=== PATIENT | male | born 1955 | race Caucasian/White ===

== ENCOUNTER 2021-10-13 07:37 | Outpatient (CLI) | payer OTHER, SELFPAY ==
--- NOTE | 2021-10-13 07:57 | EKG12_ITS ---
Test Reason : PREOP Blood Pressure : / mmHG Vent. Rate : 073 BPM Atrial Rate : 073 BPM P-R Int : 164 ms QRS Dur : 082 ms QT Int : 364 ms P-R-T Axes : -08 018 032 degrees QTc Int : 401 ms Normal sinus rhythm Normal ECG Confirmed by ANUSHA SANTOS, DECLAN ([id number]), avid editor ANTELMO CHAVEZ ([id number]) on 10/14/2021 11:26:48 AM Referred By: RUPINDER Confirmed By:DECLAN TAVARES MD
[2021-10-13 08:20] LABS: Hematocrit 44.1 % (40-54); Hemoglobin 14.6 g/dL (13.0-16.5); Mean Corp Hgb Conc 33.1 g/dL (32-36); Mean Corpuscular Hgb 31.3 pg (27.0-32.0); Mean Corpuscular Volume 94.6 fL (80-94); Mean Platelet Vol. 10.5 fl (6.2-12.0); Platelet Count 206 K/mm3 (150-450); RBC Distribution Width CV 13.1 % (11.6-14.6); RBC Distribution Width SD 45.3 fl (35.1-43.9); Red Blood Count 4.66 M/mm3 (4.6-6.2); White Blood Count 7.6 K/mm3 (4.4-11.0)
[2021-10-13 08:56] LABS: Anion Gap 3 (5-15); BUN 26 mg/dL (7-18); BUN/Creat Ratio 23.6 RATIO (10-20); Calcium,Total 8.9 mg/dL (8.5-10.1); Chloride 111 mmol/L (98-107); EST Glomerular Filtration Rate 71 mL/min (>60); Est Glom Filt Rate - Afr Amer 86 mL/min (>60); Glucose 115 mg/dL (74-106); Potassium 4.4 mmol/L (3.5-5.1); Sodium Level 143 mmol/L (136-145)
== END 2021-10-13 23:59 | disposition home or self-care (01) ==
PROVIDERS: PCP Dentist; Visit Provider Physician Assistant
DX: Z01.818 Encounter for other preprocedural examination (principal); Z01.810 Encounter for preprocedural cardiovascular examination
CPT/HCPCS: 36415; 80048; 85027; 93005

== ENCOUNTER 2022-02-21 04:43 | Inpatient (IN) | payer OTHER, MEDICARE, SELFPAY ==
[2022-02-21] VITALS (19 sets, daily range): BP systolic 139–168; BP diastolic 82–121; PULSE 62–85; RESP 16–18; TEMP 36.3–37; O2SAT 95–100; BMI 39.0; BMI 38.7
--- NOTE | 2022-02-21 04:56 | RAD_ITS ---
STUDY: X-RAY CHEST REASON FOR EXAM: Male, 66 years old. chest pain TECHNIQUE: Single AP portable view of the chest. COMPARISON: None. FINDINGS: The lungs are clear and expanded. There is no demonstrated pleural abnormality. Normal size heart. Normal mediastinum and bryn. Normal visualized pulmonary arteries. Normal visualized aortic arch and descending thoracic aorta. Normal visualized thoracic spine. Normal visualized ribs, clavicles, and shoulders. There is no demonstrated abnormality of the visualized soft tissue structures of the upper abdomen. RAD/Chest 1 View (Portable) IMPRESSION: Normal x-ray examination of the chest. Electronically Signed: Khanh Bonner DO at 5:22 EDT ,
--- NOTE | 2022-02-21 04:56 | EKG12_ITS ---
Test Reason : CP Blood Pressure : / mmHG Vent. Rate : 076 BPM Atrial Rate : 076 BPM P-R Int : 166 ms QRS Dur : 084 ms QT Int : 392 ms P-R-T Axes : 045 014 041 degrees QTc Int : 441 ms Normal sinus rhythm Normal ECG Confirmed by ANUSHA SANTOS, DECLAN ([id number]), photograph editor JACKY RODRIGUEZ ([id number]) on 02/23/2022 9:57:37 AM Referred By: PL Confirmed By:DECLAN TAVARES MD
--- NOTE | 2022-02-21 04:57 | ED.VIS.CHEST ---
HPI History of Present Illness Chief Complaint: Chest Pain Informant: patient Narrative Narrative: Patient presents with anterior chest pain. He states it is a burning or weight pressing down on his chest. Is across his whole front chest. It just radiates up toward the shoulders. Its not in the back neck or jaw. He does not really feel nauseated lightheaded diaphoretic or short of breath with it. He has been having these episodes for about 3 or 4 days. It started off that he would get them while he was on a step machine. He is use this machine for a long time but just started getting the symptoms. If he would stop, the symptoms would go away in about 15 to maybe 20 minutes. He had an episode last night about 11 PM that went away. That 1 occurred at rest. He tried some milk and it seemed to help. He then started another episode about 45 minutes ago. He has tried milk and Tums and that made no change at all. He does not have a sour or acid taste in his mouth. No history of GERD. Patient denies any medical problems. But its been a very long time since he has been in to see a physician. He does have a physical exam coming up. He has no history of blood pressure but he also has not had his blood pressure checked in quite some time. He has had no recent travel surgery or immobilization personal or family history of DVT or PE. Last surgery was a knee scope over 6 months ago. He quit smoking about 10 or 12 years ago. No known family history of early heart disease. [facility] Medical History COPD (chronic obstructive pulmonary disease) Home Medications NK 02/21/22 [History Last Taken Unknown] Allergy/AdvReac Type Severity Reaction Status Date / Time No Known Allergies Allergy Verified 02/21/22 04:47 Social History Smoking Status: Former smoker ROS ROS ED Constitutional Constitutional ED: Denies chills or fever(s) Eyes Eyes: Denies blurry vision ENT ENT ED: Denies rhinorrhea or sore throat Cardiovascular Cardiovascular: Reports as per HPI Respiratory/Chest Respiratory/Chest: Denies dyspnea Gastrointestinal Gastrointestinal: Denies nausea or vomiting Genitourinary Genitourinary ED: Denies hematuria Musculoskeletal Musculoskeletal: Denies back pain or neck pain Integumentary Denies rash Neurologic Neurologic: Denies headache(s), paresthesias or weakness Endocrine Endocrinology: Denies polydipsia or polyuria Hematologic/Lymphatic Hematologic/Lymphatic: Denies easy bleeding or easy bruising Allergic/Immunologic Allergic/Immunologic ED: Denies urticaria EXAM Physical Exam Const Vital Signs: 02/21/22 04:44 02/21/22 04:49 02/21/22 05:04 Temperature 98.1 F Temperature Source Oral Pulse Rate 77 Respiratory Rate 18 Respiratory Effort Normal Non-Labored Blood Pressure 168/121 H Blood Pressure Mean 136 Pulse Ox 100 Oxygen Delivery Method Room Air Room Air 02/21/22 05:28 Temperature Temperature Source Pulse Rate 68 Respiratory Rate Respiratory Effort Blood Pressure 157/95 H Blood Pressure Mean Pulse Ox Oxygen Delivery Method Positive well nourished and well developed Constitutional Narrative: Patient sitting back in bed. He is relaxed. He does state that he is uncomfortable though. He is not diaphoretic or pale. General Appearance ED: well developed and NAD; Negative for pallor HEENT Reports moist mucous membranes Eyes General Eye ED: Negative for scleral icterus Neck no JVD Chest Wall inspection of chest normal and palpation of chest normal Chest Narrative: No chest wall tenderness Resp normal respiratory effort and clear to auscultation bilaterally Resp Narrative: No pain with a deep breath Auscultation: Negative for rales, rhonchi or wheezes Cardio regular rate, regular rhythm and no murmurs GI normal to inspection, nondistended, normoactive bowel sounds, soft to palpation and non-tender GI Narrative: No epigastric or right upper quadrant tenderness. Back/Spine no CVA tenderness Extremity normal to inspection Extremity Narrative: Lower extremities are thin. No edema cords or asymmetry. Neuro oriented x3 Sensorium / Orientation: awake and alert Psych mental status grossly normal Skin no rashes or lesions noted Skin Narrative: No diaphoresis General Skin Exam: Negative for jaundice or pallor Heart Score History: Moderately Suspicious ECG: Nonspecific Repolarization Age: >/= 65 years Risk Factors: 1 or 2 Risk Factors Troponin: >1 - <3 Normal Limit Score: 6 MDM MDM MDM Narrative Medical decision making narrative: Patient did not want the nitro. He tells me his pain is gone now. His blood pressure is also down a little bit. Saturations are normal. He looks more comfortable now. Labs show normal CBC. Electrolytes look good other than minimal elevation of glucose. However, his troponin is high at 173. Chest x-ray shows no acute process. This patient's story is concerning with exertional chest pain that now occurred at rest. This was a worse episode. He has risk factors of obesity, likely untreated high blood pressure, and prior smoking history although that is been over 10 years. I have hospitalist on page regarding admission. Lab Data Labs: Laboratory Results - last 24 hr 02/21/22 02/21/22 04:57 04:57 WBC 9.6 RBC 4.49 L Hgb 14.3 Hct 42.8 MCV 95.3 H MCH 31.8 MCHC 33.4 RDW Std Deviation 45.5 H RDW Coeff of Navjot 13.0 Plt Count 201 MPV 10.3 Immature Gran % (Auto) 0.300 Neut % (Auto) 42.8 L Lymph % (Auto) 44.0 H Pendleton % (Auto) 10.0 Eos % (Auto) 2.5 Baso % (Auto) 0.4 Absolute Neuts (auto) 4.1 Absolute Lymphs (auto) 4.21 Nucleated RBC % 0 Sodium 141 Potassium 3.5 Chloride 105 Carbon Dioxide 32.0 Anion Gap 4 L BUN 14 Creatinine 1.05 Estim Creat Clear Calc 66.05 Est GFR (MDRD) Af Amer 90 Est GFR (MDRD) Non-Af 75 BUN/Creatinine Ratio 13.3 Glucose 117 H Calcium 8.7 Troponin I High Sens 173 H* Radiography Diagnostic Testing: Clinical Impression(s) from Imaging Studies Chest X-Ray 02/21/22 04:56 IMPRESSION: Normal x-ray examination of the chest. Electronically Signed: Khanh Bonner DO at 5:22 EDT , EKG Initial EKG: Comments: EKG done for chest pain read by me shows a normal sinus rhythm with overall rate of 76. No ectopy. There is very subtle well less than half a millimeter of ST depression in leads V4 V5 may be a little in V6. MO interval, QRS duration and QTc normal. EKG looks similar to prior of 13 October 2021 but there is some very subtle difference in the ST segment/J-point in the lateral chest leads Discharge Plan Dx/Rx/DC Orders Clinical Impression: Non-ST elevation CT (NSTEMI), Elevated blood pressure reading Disposition Disposition: Acute Care Hospital [facility]
[2022-02-21] MEDS: Aspirin 81 MG TAB.CHEW 324 MG PO (05:01)
[2022-02-21 05:03] LABS: Absolute Lymphocyte Count 4.21 X10^3/uL (0.83-4.51); Absolute Neutrophil Count 4.1 X10^3/uL (2.0-7.7); Basophil# 0.04 X10^3/uL; Basophil% 0.4 % (0-1); Eosinophil# 0.24 X10^3/uL; Eosinophils% 2.5 % (0-5); Hematocrit 42.8 % (40-54); Hemoglobin 14.3 g/dL (13.0-16.5); Lymphocyte # 4.21 X10^3/ul (0.83-4.51); Mean Corp Hgb Conc 33.4 g/dL (32-36); Mean Corpuscular Hgb 31.8 pg (27.0-32.0); Mean Corpuscular Volume 95.3 fL (80-94); Mean Platelet Vol. 10.3 fl (6.2-12.0); Monocyte# 0.96 X10^3/uL; NRBC Flagged by Analyzer 0 % (0-5); Neutrophil # 4.09 X10^3/uL (2.7-7.7); Neutrophil % 42.8 % (47-70); Platelet Count 201 K/mm3 (150-450); RBC Distribution Width SD 45.5 fl (35.1-43.9); Red Blood Count 4.49 M/mm3 (4.6-6.2); White Blood Count 9.6 K/mm3 (4.4-11.0)
--- NOTE | 2022-02-21 05:21 | NURSING ---
pt refused nitro.
[2022-02-21 05:24] LABS: Anion Gap 4 (5-15); BUN 14 mg/dL (7-18); BUN/Creat Ratio 13.3 RATIO (10-20); Calcium,Total 8.7 mg/dL (8.5-10.1); Chloride 105 mmol/L (98-107); Creatinine, Serum 1.05 mg/dL (0.70-1.30); EST Glomerular Filtration Rate 75 mL/min (>60); Est Glom Filt Rate - Afr Amer 90 mL/min (>60); Estimated Creatinine Clearance 66.05 ml/min; Glucose 117 mg/dL (74-106); Potassium 3.5 mmol/L (3.5-5.1); Sodium Level 141 mmol/L (136-145); Troponin-I HS (w/2H Reflex) 173 pg/mL (3.0-78.0)
[2022-02-21] MEDS: Nitroglycerin SL (ED/IMG/CATH) 0.4 MG TABLET SL ×2 (05:28→05:49)
--- NOTE | 2022-02-21 06:00 | EKG12_ITS ---
Test Reason : CP ADMISSION Blood Pressure : / mmHG Vent. Rate : 072 BPM Atrial Rate : 072 BPM P-R Int : 168 ms QRS Dur : 082 ms QT Int : 386 ms P-R-T Axes : 040 007 036 degrees QTc Int : 422 ms Normal sinus rhythm Normal ECG Confirmed by ANUSHA SANTOS, DECLAN ([id number]), editorial assistant JACKY RODRIGUEZ ([id number]) on 02/23/2022 9:57:58 AM Referred By: STEPHANIE Confirmed By:DECLAN TAVARES MD
--- NOTE | 2022-02-21 06:01 | HP.PCM.HOS_ITS ---
HPI - General General Date of Admission: 02/21/22 Date of Service: 02/21/22 Chief Complaint: chest pain HPI Narrative BOSSMAN MCLAUGHLIN, is a 66 M with a significant history of COPD that improved with him quitting smoking about 10 years ago who presents to the emergency department with substernal chest pain that started about 5 days ago. His chest pain is episodic. He described chest pain as burning and aching. It has been worsening. At night before presentation his chest pain occurred. He attributed his chest pain to indigestion so he took some milk and Tums and his chest pain was resolved. The next morning (on the day of presentation) his chest pain woke him up from sleep. He took some milk and Tums but at that time his chest pain did not resolved and it persisted. His chest pain worsens with exercising. Of note patient exercise avidly. He uses a stepper machine and weights. On presentation his chest pain was a 7-8 on a scale of 1-10. With nitroglycerin his chest pain improved to 5-6. [facility] Medical History COPD (chronic obstructive pulmonary disease) Home Medications NK 02/21/22 [History Last Taken Unknown] Allergy/AdvReac Type Severity Reaction Status Date / Time No Known Allergies Allergy Verified 02/21/22 04:47 Family History (Updated 02/21/22 @ 06:[address] Lowell Ring MD) Other Diabetes Surgical History (Updated 02/21/22 @ 06:[address] Lowell Ring MD) H/O arthroscopy of knee Social History Smoking Status: Former smoker ROS ROS Narrative Pertinent positives and pertinent negatives as noted in HPI. All other systems were reviewed and are negative. Vital Signs Vital Signs Vital Signs: 02/21/22 04:44 02/21/22 04:49 02/21/22 05:04 Temperature 98.1 F Temperature Source Oral Pulse Rate 77 Respiratory Rate 18 Respiratory Effort Normal Non-Labored Blood Pressure 168/121 H Blood Pressure Mean 136 Pulse Ox 100 Oxygen Delivery Method Room Air Room Air 02/21/22 05:28 02/21/22 05:49 Temperature Temperature Source Pulse Rate 68 72 Respiratory Rate Respiratory Effort Blood Pressure 157/95 H 142/86 H Blood Pressure Mean Pulse Ox Oxygen Delivery Method Weight Weight: 116.6 kg Body Mass Index (BMI) 39.0 Physical Exam Narrative Physical exam: General: Well-nourished, well-developed. Head: Normocephalic, atraumatic, no tenderness Eyes: Vision is grossly intact. EOMI ENT, no trauma, moist mucous membranes, no rhinorrhea Neck: Nontender, full range of motion, no spinal tenderness, deformities, step- off CVS: Regular rate and rhythm. S1-S2 present. No murmur, gallop or rub. Respiratory : clear to auscultation bilaterally, chest wall nontender, no wheezing Abdomen: Soft, nontender, nondistended, normal bowel sounds, no masses : Deferred Back: Nontender, no CVA tenderness, no midline spinal tenderness, deformities, step-offs Extremities: Nontender full range of motion, no trauma Skin: Normal color, no trauma, abrasions Neuro: Alert, oriented, cranial nerves II through XII grossly intact. Psychiatry: Normal mood. Normal affect. Not depressed. Not anxious. Results Lab / Micro Data Result Diagrams: 02/21/22 04:57 02/21/22 04:57 Labs: Laboratory Results - last 24 hr 02/21/22 04:57: WBC 9.6, RBC 4.49 L, Hgb 14.3, Hct 42.8, MCV 95.3 H, MCH 31.8, MCHC 33.4, RDW Std Deviation 45.5 H, RDW Coeff of Navjot 13.0, Plt Count 201, MPV 10.3, Immature Gran % (Auto) 0.300, Neut % (Auto) 42.8 L, Lymph % (Auto) 44.0 H, Saline % (Auto) 10.0, Eos % (Auto) 2.5, Baso % (Auto) 0.4, Absolute Neuts (auto) 4.1, Absolute Lymphs (auto) 4.21, Nucleated RBC % 0 02/21/22 04:57: Sodium 141, Potassium 3.5, Chloride 105, Carbon Dioxide 32.0, Anion Gap 4 L, BUN 14, Creatinine 1.05, Estim Creat Clear Calc 66.05, Est GFR (MDRD) Af Amer 90, Est GFR (MDRD) Non-Af 75, BUN/Creatinine Ratio 13.3, Glucose 117 H, Calcium 8.7, Troponin I High Sens 173 H* Radiology Impression Chest X-Ray 02/21/22 04:56 IMPRESSION: Normal x-ray examination of the chest. Electronically Signed: Khanh DO Kailey at 5:22 EDT Reading Location ID and State: [address] [place] [address] Tel , Service support , Assessment & Plan Assessment/Plan (1) Non-ST elevation [place] (NSTEMI): (2) Elevated blood pressure reading: PLAN: Plan NSTEMI Place on a monitored bed at PCU Actual CXR image was independently visualized. No acute cardiopulmonary process was noted. Actual EKG tracing was independently visualized. EKG tracing showed subtle ST depression in leads V4 and V5 which disappeared on repeat. ASA 324 given at the ED. ASA 81 mg p.o. daily ordered Morphine as needed for pain ordered We will check lipid panel. Initial troponin elevated Serial cardiac enzymes ordered. Stat EKG as needed for chest pain Elevated blood pressure reading without evidence of hypertension prn Hydralazine ordered. DVT Prophylaxis SCD ordered Charges/Coding Visit Charges OBSV E&M: 30327 Initial observation care L2
--- NOTE | 2022-02-21 06:37 | ECHOCS_ITS ---
Reason For Study: Chest pain Procedure This was a 2D Doppler, Color Flow transthoracic echocardiogram. The study was technically difficult. Exam performed portable in patient room. Left Ventricle Normal LV size. Left ventricular systolic function is lower limits of normal. The estimated ejection fraction is 50 %. Mild segmental systolic dysfunction (see wall motion). Stage 1 diastolic dysfunction. Posterior-Basal: Hypokinetic. The rest of the wall segments are normal. Right Ventricle Normal RV size. Normal systolic function. Atria Normal left atrium. Normal right atrium. Mitral Valve Normal mitral valve. Tricuspid Valve Normal tricuspid valve. Aortic Valve Trisinus/trileaflet aortic valve. Pulmonic Valve Normal pulmonic valve. Great Vessels Normal aortic root. The pulmonary artery is normal size. Normal inferior vena cava. Pericardium/Pleural No pericardial effusion. Medication Diluted definity 4.5ml given slow IV push to enhance endocardial definition. MMode/2D Measurements & Calculations LVIDd: 4.8 cm IVSd: 1.1 cm Ao root diam: 3.5 cm LVIDs: 3.6 cm LVPWd: 1.0 cm RVDd: 3.9 cm FS: 24.6 % LAV(MOD-bp): 49.1 ml LVAd ap4: 34.3 cm2 LVAd ap2: 35.0 cm2 LAV(MOD-bp) Indexed: 21.7 ml/m2 LVLd ap4: 8.4 cm LVLd ap2: 8.5 cm LAV(MOD-sp2): 56.1 ml EDV(MOD-sp4): 112.4 ml EDV(MOD-sp2): 119.2 ml LAV(MOD-sp4): 37.6 ml EDV(sp4-el): 118.5 ml EDV(sp2-el): 122.0 ml LVAs ap4: 21.0 cm2 LVAs ap2: 21.4 cm2 LVLs ap4: 6.6 cm LVLs ap2: 7.2 cm ESV(MOD-sp4): 55.3 ml ESV(MOD-sp2): 55.7 ml ESV(sp4-el): 56.7 ml ESV(sp2-el): 53.9 ml EF(MOD-sp4): 50.8 % EF(MOD-sp2): 53.2 % EF(sp4-el): 52.2 % SV(MOD-sp4): 57.1 ml SV(MOD-sp2): 63.5 ml SV(sp4-el): 61.8 ml LA A4 area: 14.7 cm2 LA dimension(2D): 4.2 cm RA A4 area: 19.1 cm2 Time Measurements MV dec time: 0.19 sec Doppler Measurements & Calculations MV E max mihir: 66.5 cm/sec Lat Peak E' Mihir: 9.2 cm/sec Med Peak E' Mihir: 7.9 cm/sec MV A max mihir: 77.4 cm/sec E/E' lat: 7.3 E/E' med: 8.5 MV E/A: 0.86 Ao V2 max: 131.7 cm/sec LV V1 max: 100.5 cm/sec MV dec slope: 353.3 cm/sec2 Ao max P.9 mmHg LV V1 max P.0 mmHg PA V2 max: 90.7 cm/sec ECHO/Echo Complete W/ Contrast Interpretation Summary Normal LV size. Left ventricular systolic function is lower limits of normal. The estimated ejection fraction is 50 %. Posterior-Basal: Hypokinetic Stage 1 diastolic dysfunction. Contrast injection was performed. Ordering Physician: Lowell Ring Referring Physician: Aleksandr Dejesus M.D. Performed By: Sondra Rivera RDCS
--- NOTE | 2022-02-21 06:37 | EKG12_ITS ---
Test Reason : cp admin Blood Pressure : / mmHG Vent. Rate : 065 BPM Atrial Rate : 065 BPM P-R Int : 168 ms QRS Dur : 082 ms QT Int : 382 ms P-R-T Axes : 038 015 041 degrees QTc Int : 397 ms Normal sinus rhythm with sinus arrhythmia Normal ECG When compared with ECG of 21-FEB-2022 06:17, MANUAL COMPARISON REQUIRED, DATA IS UNCONFIRMED Confirmed by ANUSHA SANTOS, DECLAN ([id number]), assignment desk editor JACKY RODRIGUEZ ([id number]) on 02/23/2022 10:10:51 AM Referred By: Jhonathan Confirmed By:DECLAN TAVARES MD
--- NOTE | 2022-02-21 06:51 | NURSING ---
pt admitted to pcu room 128, pt a&ox3, c/o 5/10 mid sternal chest pain that does not radiate, no sob, or nausea, on ra, pt instructed that he is npo and that the primer and powder canning leader will be in shortly to see him, rn told pt that he could call his to come in before visiting hours since he will possible be going for a heart cath this am, pt instructed not to get out of bed without help call light with in reach.
[2022-02-21 07:00] LABS: Reflex Troponin-HS? (from REC) Y
[2022-02-21] MEDS: Nitroglycerin (INPATIENT USE) 0.4 MG TAB.SUBL SL (07:01)
[2022-02-21 07:33] LABS: Cholesterol 175 mg/dL (200); High Density Lipoprotein 38 mg/dL; Triglycerides 65 mg/dL; Troponin-I HS 255 pg/mL (3.0-78.0); Very Low Density Lipoprotein 13 mg/dL (5-40)
--- NOTE | 2022-02-21 07:36 | CPS ---
admin EKG done in ER by RT hauser. Dr. Todd confirmed that it was okay to do that
--- NOTE | 2022-02-21 07:58 | PCM.CONS.C ---
Assessment & Plan Assessment/Plan (1) Non-ST elevation MD (NSTEMI): PLAN: He does presents with chest discomfort which is concerning for angina at this time my recommendation is for him to be evaluated for coronary artery disease. I would recommend the following Aspirin 81 mg a day High intensity statin Left heart catheterization and depending on the findings further recommendations will be made Addendum: Cardiac catheterization demonstrated the following: Normal left main coronary artery. Left anterior descending artery with multiple areas of 80 to 90% stenosis. Left circumflex artery with high-grade 90% mid circumflex artery stenosis. Dominant large right coronary artery with right to left collaterals. Preserved left ventricular systolic function. Based on the above angiographic findings I would recommend coronary artery bypass surgery. Above discussed with lead radiation therapist and hospitalist. (2) Elevated blood pressure reading: PLAN: Would recommend an PENNIE inhibitor and a beta-asia for blood pressure control. Thank you for allowing me to participate in the care of your patient. Please don't hesitate to call if any issues arise. HPI Consult Data Date of Consult: 02/21/22 HPI Narrative HPI Narrative: BOSSMAN MCLAUGHLIN, is a 66 M who presents to the emergency room with complaints of chest discomfort. He says that he has been having this over the last few days to weeks usually with exertion. When he gets on his exercise bike or ambulates he does get chest discomfort described as a burning sensation and sometimes almost on indigestion. He has had to take Tums a few times and this has relieved his discomfort. Yesterday he had it with minimal exertion and decided to present to the emergency room. His EKG did not demonstrate any significant abnormalities but his cardiac enzymes were mildly elevated. Cardiology was called for further evaluation and management. He denies any dizziness or diaphoresis near syncope or syncope. [facility] Medical History (Updated 02/21/22 @ 06:37 by Eunice Geiger) COPD (chronic obstructive pulmonary disease) GERD (gastroesophageal reflux disease) Home Medications NK 02/21/22 [History Last Taken Unknown] Allergy/AdvReac Type Severity Reaction Status Date / Time No Known Allergies Allergy Verified 02/21/22 04:47 Family History (Updated 02/21/22 @ 06:[address] Lowell Ring MD) Other Diabetes Surgical History H/O arthroscopy of knee Social History Smoking Status: Former smoker ROS Constitutional Constitutional: Denies fever(s) or weight loss Eyes Eyes: Reports systems reviewed and no addt'l complaints, except as documented ENT HEENT: Reports systems reviewed and no addt'l complaints, except as documented Cardiovascular Cardiovascular: Reports chest pain at rest and chest pain with activity; Denies dyspnea at rest, dyspnea on exertion, edema, palpitations or paroxysmal nocturnal dyspnea Respiratory/Chest Respiratory/Chest: Denies dyspnea on exertion, productive cough, shortness of breath at rest or shortness of breath with exertion Gastrointestinal Gastrointestinal: Denies change in bowel habits, nausea, vomiting or weight changes Genitourinary Genitourinary: Denies difficulty urinating Musculoskeletal Musculoskeletal: Denies joint stiffness or muscle weakness Integumentary Integumentary: Denies lesions Neurologic Neurologic: Denies dizziness or syncope Psychiatric Psychiatric: Denies anxiety Endocrine Endocrinology: Denies excessive sweating or fatigue Hematologic/Lymphatic Hematologic/Lymphatic: Denies anemia Allergic/Immunologic Allergic/Immunologic: Denies seasonal rhinorrhea Risk Stratification Risk Stratification Applicable: Yes Age >/= 65: Yes >/= 3 CAD Risk Factors (HTN, HLD, DM, family hx of CAD, or current smoker): No Aspirin Use in the Past 7 Days: No Severe Angina (>/= episodes in 24 hours): Yes EKG ST Changes >/= 0.5mm: No Positive Cardiac Marker: Yes VANDA Risk Stratification Score: 3 VANDA % Risk: 13% Risk Objective Data Vital Signs: Vital Signs Temp Pulse Resp BP Pulse Ox O2 Del Method 97.3 F L 68 18 139/94 H 98 Room Air 02/21/22 06:38 02/21/22 07:01 02/21/22 06:38 02/21/22 07:01 02/21/22 06:38 02/21/22 06:38 Oxygen Delivery Method Room Air Weight: 254 lb 10.142 oz Body Mass Index (BMI) 38.7 Lab / Micro Data Result Diagrams: 02/21/22 04:57 02/21/22 04:57 Labs: Laboratory Results - last 24 hr 02/21/22 04:57: WBC 9.6, RBC 4.49 L, Hgb 14.3, Hct 42.8, MCV 95.3 H, MCH 31.8, MCHC 33.4, RDW Std Deviation 45.5 H, RDW Coeff of Navjot 13.0, Plt Count 201, MPV 10.3, Immature Gran % (Auto) 0.300, Neut % (Auto) 42.8 L, Lymph % (Auto) 44.0 H, Sebastian % (Auto) 10.0, Eos % (Auto) 2.5, Baso % (Auto) 0.4, Absolute Neuts (auto) 4.1, Absolute Lymphs (auto) 4.21, Nucleated RBC % 0 02/21/22 04:57: Sodium 141, Potassium 3.5, Chloride 105, Carbon Dioxide 32.0, Anion Gap 4 L, BUN 14, Creatinine 1.05, Estim Creat Clear Calc 66.05, Est GFR (MDRD) Af Amer 90, Est GFR (MDRD) Non-Af 75, BUN/Creatinine Ratio 13.3, Glucose 117 H, Calcium 8.7, Troponin I High Sens 173 H* 02/21/22 06:55: Troponin I High Sens 255 H*, Triglycerides 65, Cholesterol 175, LDL Cholesterol 124, VLDL Cholesterol 13, HDL Cholesterol 38 L Cardiology Labs/Tests 02/21/22 04:57: WBC 9.6, RBC 4.49 L, Hgb 14.3, Hct 42.8, MCV 95.3 H, MCH 31.8, MCHC 33.4, Plt Count 201, MPV 10.3, Immature Gran % (Auto) 0.300, Neut % (Auto) 42.8 L, Lymph % (Auto) 44.0 H, Sebastian % (Auto) 10.0, Eos % (Auto) 2.5, Baso % (Auto) 0.4, Absolute Neuts (auto) 4.1, Nucleated RBC % 0 02/21/22 04:57: Sodium 141, Potassium 3.5, Chloride 105, Carbon Dioxide 32.0, Anion Gap 4 L, BUN 14, Creatinine 1.05, Est GFR (MDRD) Af Amer 90, Est GFR (MDRD) Non-Af 75, BUN/Creatinine Ratio 13.3, Glucose 117 H, Calcium 8.7 02/21/22 06:55: Triglycerides 65, Cholesterol 175, LDL Cholesterol 124, VLDL Cholesterol 13, HDL Cholesterol 38 L Rhythm: EKG: ECHO: Stress Test: Cardiac Cath: PCI: CT Surgery: Holter monitor: EPS: PPM: CXR: Chest CT Scan: Radiography Diagnostic Testing: Radiology Impression Chest X-Ray 02/21/22 04:56 IMPRESSION: Normal x-ray examination of the chest. Electronically Signed: Khanh Bonner DO at 5:22 EDT ,
--- NOTE | 2022-02-21 09:15 | CASEMGMT ---
According to the [employer] website, the following are in-network tertiary facilities: [facility], [place], [facility], [place], [facility], [facility], [place], [facility], and . Haley WATTS CM
--- NOTE | 2022-02-21 09:26 | CL.D_ITS ---
Patient Name: BOSSMAN MCLAUGHLIN Study Date: 02/21/2022 Performing: Bolivar Horan MD Ht: 68 inches 173 cm : 1955 Wt: 256.1 lbs 116 kg Age: 66 Gender: male BSA: 2.27 PROCEDURE(S) PERFORMED [id number])LHC/COR/LV CLINICAL PROFILE AND INDICATIONS Indications: ACS <= 24 hrs Heart Failure: None Stress/Imaging Stress/Image Study Performed: No CAD Presentations: Unstable angina. CONCLUSIONS Severe two-vessel disease involving a severely diseased LAD and subtotally occluded vessel and a high -grade left circumflex artery RECOMMENDATIONS Surgery consult for coronary revascularization DESCRIPTION OF PROCEDURE The patient arrived to the procedure lab. The risks and benefits of the procedure as well as a full d escription of our services here and current unavailability of surgical backup were fully explained to the patient and/or their significant other prior to the catheterization. The Timeout was completed, verifying the correct patient and procedure. The patient's procedural site was prepped and draped in the usual fashion. Local anesthetic was given subcutaneously to right radial region with Lidocaine 2% . Using a modified Seldinger technique, arterial access was obtained via the right radial artery, a 6 Fr sheath was inserted. Left Coronary Artery selective angiography was performed in multiple views u sing a 5 Fr. 4.0 [place] catheter. Right Coronary Artery selective angiography was then performed in mu ltiple views using a 5 Fr. 4.0 [place] catheter. Left Ventriculography was performed in URBINA projection using a 5 Fr. [place] catheter. LV to AO pullback pressures were then recorded. CORONARY ANGIOGRAPHY DOMINANCE: Right Dominant LEFT HEART ASSESSMENT Left Ventricular Ejection Fraction: by LV Gram 60 % Normal LV wall motion Normal Left Ventricular systolic function LEFT MAIN: Angiographically normal LEFT ANTERIOR DESCENDING ARTERY: Medium size vessel with 80% proximal stenosis, 90% mid stenosis, and then subtotally occluded mid to distal vessel. CIRCUMFLEX ARTERY: Nondominant but large vessel with 90% mid circumflex stenosis RAMUS: High-grade proximal stenosis RIGHT CORONARY ARTERY: No significant disease noted COMPLICATIONS No Complications PROCEDURE MEDICATIONS Versed 1 mg IV Fentanyl 50 mcg IV Oxygen: 2 L/min via nasal cannula Heparin given IA 02/21/2022 09:01:37 Verapamil 2.5mg, Ntg 100mcgs, 3000 units of Heparin given IA 02/21/2022 09:01:37 SUMMARY OF HEMODYNAMIC DATA Time AIR REST ECG 08:44:37 AO 143/91 (116) SA 09:02:40 LV 136/23, 47 09:11:02 LV 141/25, 35 09:11:10 LV 135/30, 40 09:11:57 LV 136/26, 35 09:12:05 LVp 135/30, 38 09:12:11 AOp 136/85 (112) 09:12:18 Signed By Bolivar Horan MD On 02/21/2022 09:25:13 Bolivar Horan MD
[2022-02-21] MEDS: Metoprolol Tartrate 25 MG Tablet PO (10:05)
[2022-02-21] MEDS: 0.9% Normal Saline 1,000 ML 75 ML IV (10:05)
[2022-02-21] MEDS: Losartan Potassium 25 MG Tablet PO (10:06)
--- NOTE | 2022-02-21 10:52 | DCINST_ITS ---
Discharge Instructions Diet Discharge Diet: Low fat / Low cholesterol Activity Lifting Restrictions: no lifting more than 5 lbs with right arm Dressing / Incision Call your doctor if your incision/area has: Continuous Slow Oozing, Sudden Increased Bleeding, Increased Pain/ Swelling, Increased Redness, Foul Smelling Discharge and Swelling at the incision site Call your doctor if you observe: Chest pain Follow Up Care Test Results: Test results from this visit will be discussed in further detail at your follow- up appointment, if applicable. Discharge Plan Admission Admit Date/Time: 02/21/22 05:50 Primary Reason for Your Visit: NSTEMI Attending Provider: Gomez Ruiz Primary Care Provider: Aleksandr Dejesus Consulting Providers: Bolivar Horan ; Lowell Ring Discharge Orders/Prescriptions Prescriptions: New atorvastatin 40 mg Tablet 40 mg PO QHS Qty: 0 0RF aspirin 81 mg Tablet,Delayed Release (Dr/Ec) 81 mg PO BREAKFAST Qty: 0 0RF losartan 25 mg Tablet 25 mg PO DAILY Qty: 0 0RF metoprolol tartrate 25 mg Tablet 25 mg PO BID Qty: 0 0RF ondansetron HCl (PF) 4 mg/2 mL Solution 4 mg IV Q8H PRN PRN (Reason: NAUSEA/VOMITING) Qty: 0 0RF morphine 2 mg/mL Syringe 2 mg IV Q2H PRN PRN (Reason: Pain Score 6-10) Qty: 0 0RF Referrals / Follow Up: Aleksandr Dejesus MD [Primary Care Provider] - Disposition Disposition (needs filled in before D/C Order can be placed): [facility]
--- NOTE | 2022-02-21 10:55 | DS.PCM_ITS ---
Documented by User: JONAH Rosa 02/21/22 11:02 Providers Date of Admission: 02/21/22 Date of Discharge: 02/21/22 Primary Care Physician: Dr. Aleksandr Dejesus MD Consultations 02/21/22 06:37 Consult: Cardiology Routine Consulting Provider: Bolivar Horan Reason for Consult: Chest Pain EMERGENT Consult: No MD Notified: Yes Date Notified: 02/21/22 Time Notified: 05:56 Method of Notification: ED Physician Initiated Reason For Visit: NSTEMI Diagnosis Discharge Diagnosis (1) Non-ST elevation MO (NSTEMI): Status: Acute Code(s): I21.4 - Non-ST elevation (NSTEMI) myocardial infarction (2) Elevated blood pressure reading: Status: Acute Code(s): R03.0 - Elevated blood-pressure reading, without diagnosis of hypertension Medications at Discharge Home Medications aspirin 81 mg tablet,delayed release 81 mg PO BREAKFAST #0 tabs 02/21/22 atorvastatin 40 mg tablet 40 mg PO QHS #0 tabs 02/21/22 losartan 25 mg tablet 25 mg PO DAILY #0 tabs 02/21/22 metoprolol tartrate 25 mg tablet 25 mg PO BID #0 tabs 02/21/22 morphine 2 mg/mL intravenous syringe 2 mg IV Q2H PRN PRN Pain Score 6-10 #0 mL 02/21/22 ondansetron HCl (PF) 4 mg/2 mL injection solution 4 mg (2 mL) IV Q8H PRN PRN NAUSEA/VOMITING #0 mL 02/21/22 Hospital Course Operations None Procedures Cardiac catheterization Summary of Care Provided Minutes Spent on Discharge: 35 Hospital Course: Patient is a 66-year-old male who initially presented with complaints of substernal chest pain that started approximately 5 days ago. He describes the chest pain as burning and aching and that it is episodic. Patient states that he thought the chest pain initially was indigestion but that today the chest p ain woke him from sleep. Patient reports a history of COPD and that he quit smoking approximately 10 years ago. Patient states that he exercises regularly and does weightlifting as well as uses a step machine. Patient patient troponins 173 and 255, third troponin pending. Patient underwent cardiac catheterization with Dr. Horan which demonstrated severe two-vessel disease involving a severely diseased LAD and subtotally occluded vessel and a high- grade left circumflex artery. Dr. Horan discussed patient with cardiology at [facility] who are willing to accept patient for further evaluation. Patient will be transferred once a bed is available. Physical Exam Const alert, oriented x3 and no apparent distress General Appearance: cooperative HEENT normocephalic and head/scalp atraumatic Eyes conjunctivae normal and no scleral icterus Neck supple General: trachea midline Resp normal respiratory effort, normal air movement and clear to auscultation bilaterally Cardio regular rate, regular rhythm, S1 normal heart sound, S2 normal heart sound and peripheral pulses 2+ throughout GI normal to inspection, nondistended, normoactive bowel sounds, soft to palpation and non-tender Extremity normal capillary refill and no clubbing, cyanosis or edema Skin Skin Narrative: TR band in place to right wrist status post PCI, no blood noted. General Skin Exam: no breakdown Lesions: no lesions Rashes: no rashes Neuro oriented x3, moves all extremities, no focal motor deficits and no sensory deficits noted Psych affect normal Appearance: appropriate Weight / BMI Weight Weight: 254 lb 10.142 oz Body Mass Index (BMI) 38.7 ABG / Lab / Microbiology Data Result Diagrams: 02/21/22 04:57 02/21/22 04:57 Laboratory: Laboratory Results - last 24 hr 02/21/22 04:57: WBC 9.6, RBC 4.49 L, Hgb 14.3, Hct 42.8, MCV 95.3 H, MCH 31.8, MCHC 33.4, RDW Std Deviation 45.5 H, RDW Coeff of Navjot 13.0, Plt Count 201, MPV 10.3, Immature Gran % (Auto) 0.300, Neut % (Auto) 42.8 L, Lymph % (Auto) 44.0 H, [place] % (Auto) 10.0, Eos % (Auto) 2.5, Baso % (Auto) 0.4, Absolute Neuts (auto) 4.1, Absolute Lymphs (auto) 4.21, Nucleated RBC % 0 02/21/22 04:57: Sodium 141, Potassium 3.5, Chloride 105, Carbon Dioxide 32.0, Anion Gap 4 L, BUN 14, Creatinine 1.05, Estim Creat Clear Calc 66.05, Est GFR (MDRD) Af Amer 90, Est GFR (MDRD) Non-Af 75, BUN/Creatinine Ratio 13.3, Glucose 117 H, Calcium 8.7, Troponin I High Sens 173 H* 02/21/22 06:55: Troponin I High Sens 255 H*, Triglycerides 65, Cholesterol 175, LDL Cholesterol 124, VLDL Cholesterol 13, HDL Cholesterol 38 L Radiography Diagnostic Testing: Radiology Impression Chest X-Ray 02/21/22 04:56 IMPRESSION: Normal x-ray examination of the chest. Electronically Signed: Khanh Bonner DO at 5:22 EDT Reading Location ID and State: [facility] / [place] Tel , Service support , D/C Instructions Discharge Diet: Low fat / Low cholesterol Call your doctor if your incision/area has: Continuous Slow Oozing, Sudden Increased Bleeding, Increased Pain/ Swelling, Increased Redness, Foul Smelling Discharge and Swelling at the incision site Call your doctor if you observe: Chest pain Meaningful Use Info Meaningful Use Diagnoses (Choose all that apply): AMI AMI/Post PCI/Angioplasty Aspirin given w/in 24hrs of arrival?: Yes ASA at discharge?: Yes Statins at discharge?: Yes Ehrnandez/ARB at discharge?: Yes Beta Mariela at discharge?: Yes Done w/ Acute MO measure.: Yes Discharge Plan Admission Admit Date/Time: 02/21/22 05:50 Primary Reason for Your Visit: NSTEMI Attending Provider: Gomez Ruiz Primary Care Provider: Aleksandr Dejesus Consulting Providers: Bolivar Horan ; Lowell Ring Discharge Orders/Prescriptions Prescriptions: New atorvastatin 40 mg Tablet 40 mg PO QHS Qty: 0 0RF aspirin 81 mg Tablet,Delayed Release (Dr/Ec) 81 mg PO BREAKFAST Qty: 0 0RF losartan 25 mg Tablet 25 mg PO DAILY Qty: 0 0RF metoprolol tartrate 25 mg Tablet 25 mg PO BID Qty: 0 0RF ondansetron HCl (PF) 4 mg/2 mL Solution 4 mg IV Q8H PRN PRN (Reason: NAUSEA/VOMITING) Qty: 0 0RF morphine 2 mg/mL Syringe 2 mg IV Q2H PRN PRN (Reason: Pain Score 6-10) Qty: 0 0RF Referrals / Follow Up: Aleksandr Dejesus MD [Primary Care Provider] - Disposition Disposition (needs filled in before D/C Order can be placed): Acute [facility] Documented by User: Dr. Gomez Ruiz DO 02/21/22 18:13 Providers Date of Admission: 02/21/22 Reason For Visit: NSTEMI Diagnosis Discharge Diagnosis (1) Non-ST elevation MO (NSTEMI): Status: Acute Code(s): I21.4 - Non-ST elevation (NSTEMI) myocardial infarction (2) Elevated blood pressure reading: Status: Acute Code(s): R03.0 - Elevated blood-pressure reading, without diagnosis of hypertension Medications at Discharge Home Medications aspirin 81 mg tablet,delayed release 81 mg PO BREAKFAST #0 tabs 02/21/22 atorvastatin 40 mg tablet 40 mg PO QHS #0 tabs 02/21/22 losartan 25 mg tablet 25 mg PO DAILY #0 tabs 02/21/22 metoprolol tartrate 25 mg tablet 25 mg PO BID #0 tabs 02/21/22 morphine 2 mg/mL intravenous syringe 2 mg IV Q2H PRN PRN Pain Score 6-10 #0 mL 02/21/22 ondansetron HCl (PF) 4 mg/2 mL injection solution 4 mg (2 mL) IV Q8H PRN PRN NAUSEA/VOMITING #0 mL 02/21/22 ABG / Lab / Microbiology Data Result Diagrams: 02/21/22 04:57 02/21/22 04:57 Discharge Plan Admission Admit Date/Time: 02/21/22 05:50 Primary Reason for Your Visit: NSTEMI Attending Provider: Gomez Ruiz Primary Care Provider: Aleksandr Dejesus Consulting Providers: Bolivar Horan ; Lowell Ring Discharge Orders/Prescriptions Prescriptions: New atorvastatin 40 mg Tablet 40 mg PO QHS Qty: 0 0RF aspirin 81 mg Tablet,Delayed Release (Dr/Ec) 81 mg PO BREAKFAST Qty: 0 0RF losartan 25 mg Tablet 25 mg PO DAILY Qty: 0 0RF metoprolol tartrate 25 mg Tablet 25 mg PO BID Qty: 0 0RF ondansetron HCl (PF) 4 mg/2 mL Solution 4 mg IV Q8H PRN PRN (Reason: NAUSEA/VOMITING) Qty: 0 0RF morphine 2 mg/mL Syringe 2 mg IV Q2H PRN PRN (Reason: Pain Score 6-10) Qty: 0 0RF Referrals / Follow Up: Aleksandr Dejesus MD [Primary Care Provider] - Disposition Disposition (needs filled in before D/C Order can be placed): [facility] Charges/Coding Addendum Addendum: Patient was seen and examined independently of Kae Cohen, he underwent a cardiac catheterization today which showed severe occlusive disease in 2 vessels, this required a transfer to a tertiary facility for consultation regarding a possible bypass. I talked with the patient's who was at his bedside at the time my examination today. Also talked with cardiology concerning his catheterization and I talked with Dr. Culp who is the thoracic surgeon that has agreed to see the patient at [facility]. Patient's echocardiogram showed an ejection fraction of 50%, there is no significant valvular heart disease. On examination he appeared in good health and spirits. Vital signs as documented. Skin warm and dry and without overt rashes. Neck without JVD, neck was supple, trachea midline, thyroid was normal. Lungs clear bilaterally, normal air movement was noted. Heart exam notable for regular rhythm, normal sounds and absence of murmurs, rubs or gallops. Abdomen unremarkable and without evidence of organomegaly, masses, or abdominal aortic enlargement. Bowel sounds are present, abdomen is not distended. Extremities nonedematous, no cyanosis was noted, no clubbing was noted. Neuro: Cranial nerves II through XII are grossly intact, no focal motor deficits were noted, sensation to light touch and pinprick intact, motor exam 5/5 throughout. Psych: Patient is alert and oriented x3, he does not appear anxious or depressed, he does not appear agitated. Impression: #1 [id number] patient will be transferred to a tertiary facility for consultation regarding possible bypass surgery #2 occlusive coronary artery disease left anterior descending artery, circumflex artery-again patient will be transferred to tertiary facility #3 essential hypertension-patient's blood pressure will need to be monitored at the tertiary hospital, he may need to be placed on medications for hypertension when he is discharged from the hospital. I have reviewed Kae Cohen's discharge summary including her medical assessment and plan of care with the above additions endorse it. Total clinical time spent by myself addressing the patient's medical issues, reviewing the data, and collaborating with patient's care team: 25 minutes Visit Charges Inpatient E&M: 08665 Disch Hosp
[2022-02-21 11:19] LABS: Troponin-I HS 2162 pg/mL (3.0-78.0)
--- NOTE | 2022-02-21 11:43 | PHA.DC.MR ---
Pharmacy Service has performed discharge medication reconciliation for this patient. The patient's discharge medication list was reviewed for discrepancies and discrepancies were resolved. Home Medications aspirin 81 mg tablet,delayed release 81 mg PO BREAKFAST #0 tabs 02/21/22 atorvastatin 40 mg tablet 40 mg PO QHS #0 tabs 02/21/22 losartan 25 mg tablet 25 mg PO DAILY #0 tabs 02/21/22 metoprolol tartrate 25 mg tablet 25 mg PO BID #0 tabs 02/21/22 morphine 2 mg/mL intravenous syringe 2 mg IV Q2H PRN PRN Pain Score 6-10 #0 mL 02/21/22 ondansetron HCl (PF) 4 mg/2 mL injection solution 4 mg (2 mL) IV Q8H PRN PRN NAUSEA/VOMITING #0 mL 02/21/22
[2022-02-21 12:24] LABS: Magnesium 2.2 mg/dL (1.6-2.6)
[2022-02-21] MEDS: Magnesium Chloride 64 MG Delay Rel.Tablet 128 MG PO (13:51)
[2022-02-21] MEDS: Potassium Chloride Oral Tablet 20 MEQ 40 MEQ PO (13:51)
== END 2022-02-21 15:13 | disposition short-term general hospital (02) | DRG 282 ==
LOC: ED 05:40 → PCU 06:57
PROVIDERS: Admitting Provider Hospitalist; Emergency Provider Emergency Medicine; PCP Dentist; Visit Provider Internal Medicine
DX: I21.4 Non-ST elevation (NSTEMI) myocardial infarction (principal); I10 Essential (primary) hypertension; I25.110 Atherosclerotic heart disease of native coronary artery with unstable angina pectoris; J44.9 Chronic obstructive pulmonary disease, unspecified; Z79.82 Long term (current) use of aspirin; Z79.899 Other long term (current) drug therapy; Z87.891 Personal history of nicotine dependence
CPT/HCPCS: 36415; 71045; 80048; 80061; 83735; 84484; 85025; 93005; 93306; 93458; 99152; 99153; 99285; J7030; Q9957; A4216; C1769; C1894; C8929; Q9967

== ENCOUNTER → 2022-03-22 | Outpatient (CLI) | payer OTHER, SELFPAY ==
--- NOTE | 2022-03-22 14:48 | RAD_ITS ---
STUDY: X-RAY CHEST REASON FOR EXAM: Male, 67 years old. zavala TECHNIQUE: XR Chest 2 Views COMPARISON: 02.21.22 FINDINGS: There is a left pleural effusion. Left lower lobe infiltrate or atelectasis. There are multiple median sternotomy wires. Normal size heart. Normal mediastinum and bryn. Normal visualized pulmonary arteries. There is atherosclerotic calcification of the aortic arch with tortuosity. There are diffuse degenerative changes of the visualized thoracic spine. There is degenerative osteoarthritis of the bilateral shoulders. There is no demonstrated abnormality of the visualized soft tissue structures of the upper abdomen. RAD/Chest PA and Lateral IMPRESSION: There is a left pleural effusion. Left lower lobe infiltrate or atelectasis. Electronically Signed: Randall Craft MD at 16:53 EDT ,
== END | disposition home or self-care (01) ==
LOC: RAD 14:47
PROVIDERS: PCP Family Medicine; Referring Provider Physician Assistant Medical; Visit Provider Physician Assistant Medical
DX: R06.09 Other forms of dyspnea (principal); I48.91 Unspecified atrial fibrillation; I97.89 Other postprocedural complications and disorders of the circulatory system, not elsewhere classified; I25.10 Atherosclerotic heart disease of native coronary artery without angina pectoris; I65.22 Occlusion and stenosis of left carotid artery; I66.09 Occlusion and stenosis of unspecified middle cerebral artery; Z95.1 Presence of aortocoronary bypass graft
CPT/HCPCS: 71046

== ENCOUNTER → 2022-05-06 | Outpatient (CLI) | payer OTHER, SELFPAY ==
[2022-05-06 16:24] LABS: Anion Gap 3 (5-15); BUN 32 mg/dL (7-18); BUN/Creat Ratio 24.8 RATIO (10-20); Calcium,Total 8.8 mg/dL (8.5-10.1); Chloride 105 mmol/L (98-107); Creatinine, Serum 1.29 mg/dL (0.70-1.30); EST Glomerular Filtration Rate 59 mL/min (>60); Est Glom Filt Rate - Afr Amer 71 mL/min (>60); Glucose 115 mg/dL (74-106); Potassium 3.8 mmol/L (3.5-5.1); Sodium Level 140 mmol/L (136-145)
== END | disposition home or self-care (01) ==
PROVIDERS: PCP Family Medicine; Referring Provider Physician Assistant Medical; Visit Provider Physician Assistant Medical
DX: R60.9 Edema, unspecified (principal)
CPT/HCPCS: 36415; 80048

== ENCOUNTER → 2022-07-12 | Outpatient (CLI) | payer OTHER, SELFPAY ==
--- NOTE | 2022-07-12 15:50 | RAD_ITS ---
EXAM: XR CHEST, 2 VIEWS CLINICAL INDICATION: SOB TECHNIQUE: Frontal and lateral views of the chest. This report was created using [employer] report generation technology. COMPARISON: 03/22/2022 FINDINGS: LUNGS AND PLEURAL SPACES: There is persistent blunting of left costophrenic angle which may represent pleural effusion or scarring. No pneumothorax. HEART: Unremarkable. Cardiac silhouette not enlarged. MEDIASTINUM: Central airways and mediastinal contour are unremarkable. BONES/JOINTS: Median sternotomy wires are present. SOFT TISSUES: Unremarkable. RAD/Chest PA and Lateral IMPRESSION: No change in the appearance of the chest from the reference examination. There is left-sided effusion or pleural scarring. There is no focal consolidation. Electronically Signed: Reji Gutierrez MD at 16:23 EST ,
[2022-07-12 16:35] LABS: Absolute Lymphocyte Count 1.67 X10^3/uL (0.83-4.51); Absolute Neutrophil Count 4.4 X10^3/uL (2.0-7.7); Basophil# 0.04 X10^3/uL; Basophil% 0.6 % (0-1); Eosinophil# 0.14 X10^3/uL; Hemoglobin 12.8 g/dL (13.0-16.5); Lymphocyte # 1.67 X10^3/ul (0.83-4.51); Lymphocyte % 23.6 % (19-41); Mean Corpuscular Hgb 29.2 pg (27.0-32.0); Mean Corpuscular Volume 91.1 fL (80-94); Mean Platelet Vol. 10.4 fl (6.2-12.0); Monocyte# 0.81 X10^3/uL; Monocyte% 11.5 % (0-10); NRBC Flagged by Analyzer 0 % (0-5); Neutrophil # 4.38 X10^3/uL (2.7-7.7); Neutrophil % 61.9 % (47-70); POSITIVE MORPHOLOGY YES; Platelet Count 193 K/mm3 (150-450); RBC Distribution Width CV 20.3 % (11.6-14.6); Red Blood Count 4.39 M/mm3 (4.6-6.2); White Blood Count 7.1 K/mm3 (4.4-11.0)
[2022-07-12 16:38] LABS: Differential Indicated SCAN CRITERIA MET
[2022-07-12 17:12] LABS: Anisocytosis 1+; Macrocytosis 1+; Platelet Estimate ADEQUATE (ADEQ); Red Cell Morphology N CHROM NORMAL (NORM C&C)
[2022-07-12 17:20] LABS: BNP,B-Type NATRIURETIC PEPTIDE 147.2 pg/mL (0-100)
[2022-07-12 17:27] LABS: Anion Gap 5 (5-15); BUN 17 mg/dL (7-18); BUN/Creat Ratio 14.9 RATIO (10-20); Calcium,Total 9.1 mg/dL (8.5-10.1); Chloride 104 mmol/L (98-107); Creatinine, Serum 1.14 mg/dL (0.70-1.30); EST Glomerular Filtration Rate 68 mL/min (>60); Est Glom Filt Rate - Afr Amer 82 mL/min (>60); Glucose 93 mg/dL (74-106); Potassium 3.9 mmol/L (3.5-5.1); Sodium Level 140 mmol/L (136-145)
== END | disposition home or self-care (01) ==
LOC: RAD 15:49
PROVIDERS: PCP Family Medicine; Referring Provider Physician Assistant Medical; Visit Provider Physician Assistant Medical
DX: I31.39 Other pericardial effusion (noninflammatory) (principal); I48.91 Unspecified atrial fibrillation; J90 Pleural effusion, not elsewhere classified; I97.89 Other postprocedural complications and disorders of the circulatory system, not elsewhere classified; R06.02 Shortness of breath
CPT/HCPCS: 36415; 71046; 80048; 83880; 85025

== ENCOUNTER → 2022-07-20 | Outpatient (CLI) | payer OTHER, SELFPAY ==
--- NOTE | 2022-07-20 07:51 | ECHOD_ITS ---
Reason For Study: PERICARDIAL EFFUSION, DYSPNEA/SOB Procedure This was a 2D Doppler, Color Flow transthoracic echocardiogram. Exam performed in department. Left Ventricle Normal LV size. Left ventricular systolic function is normal. The estimated ejection fraction is 55 %. No regional wall motion abnormalities noted. Right Ventricle Normal RV size. Normal systolic function. Atria Normal left atrium. Normal right atrium. Mitral Valve Normal mitral valve. Tricuspid Valve Normal tricuspid valve. Aortic Valve Trisinus/trileaflet aortic valve. Pulmonic Valve Normal pulmonic valve. Great Vessels Normal aortic root. The pulmonary artery is normal size. Normal inferior vena cava. Pericardium/Pleural Trivial pericardial effusion. MMode/2D Measurements & Calculations LVIDd: 4.6 cm IVSd: 0.81 cm Ao root diam: 3.5 cm LVIDs: 3.2 cm LVPWd: 1.1 cm RVDd: 3.0 cm FS: 29.8 % LAV(MOD-bp): 69.5 ml LVAd ap4: 26.3 cm2 LVAd ap2: 25.7 cm2 LAV(MOD-bp) Indexed: 31.8 ml/m2 LVLd ap4: 7.1 cm LVLd ap2: 7.1 cm LAV(MOD-sp2): 65.5 ml EDV(MOD-sp4): 79.2 ml EDV(MOD-sp2): 80.6 ml LAV(MOD-sp4): 68.4 ml EDV(sp4-el): 82.2 ml EDV(sp2-el): 79.4 ml LVAs ap4: 14.0 cm2 LVAs ap2: 14.3 cm2 LVLs ap4: 6.4 cm LVLs ap2: 6.1 cm ESV(MOD-sp4): 28.1 ml ESV(MOD-sp2): 28.9 ml ESV(sp4-el): 26.3 ml ESV(sp2-el): 28.5 ml EF(MOD-sp4): 64.5 % EF(MOD-sp2): 64.1 % EF(sp4-el): 68.0 % SV(MOD-sp4): 51.1 ml SV(MOD-sp2): 51.7 ml SV(sp4-el): 55.9 ml LA dimension(2D): 5.2 cm LA A4 area: 24.1 cm2 RA A4 area: 22.3 cm2 Time Measurements MV dec time: 0.12 sec Doppler Measurements & Calculations MV E max mihir: 93.2 cm/sec Lat Peak E' Mihir: 11.7 cm/sec Med Peak E' Mihir: 10.9 cm/sec MV A max mihir: 79.2 cm/sec E/E' lat: 8.0 E/E' med: 8.5 MV E/A: 1.2 MV dec slope: 789.0 cm/sec2 Ao V2 max: 118.3 cm/sec LV V1 max: 97.4 cm/sec Ao max P.6 mmHg LV V1 max P.8 mmHg Ao V2 mean: 85.4 cm/sec LV V1 mean P.9 mmHg Ao mean P.3 mmHg LV V1 mean: 63.3 cm/sec Ao V2 VTI: 23.7 cm LV V1 VTI: 18.7 cm AV (velocity ratio): 0.79 PA V2 max: 72.1 cm/sec ECHO/Echo Complete Interpretation Summary Normal LV size. Left ventricular systolic function is normal. The estimated ejection fraction is 55 %. Trivial pericardial effusion. Ordering Physician: Ginger Dowell Referring Physician: Gomez Quintanilla Performed By: Kristin Stearns, CAROL, RVT
== END | disposition home or self-care (01) ==
PROVIDERS: PCP Family Medicine; Referring Provider Physician Assistant Medical; Visit Provider Physician Assistant Medical
DX: I31.39 Other pericardial effusion (noninflammatory) (principal); I48.91 Unspecified atrial fibrillation; R06.02 Shortness of breath; J90 Pleural effusion, not elsewhere classified; I97.89 Other postprocedural complications and disorders of the circulatory system, not elsewhere classified
CPT/HCPCS: 93306

== ENCOUNTER → 2022-08-30 | Outpatient (CLI) | payer OTHER, SELFPAY ==
--- NOTE | 2022-08-30 10:48 | RAD_ITS ---
STUDY: X-RAY CHEST REASON FOR EXAM: Male, 67 years old. Fever and cough TECHNIQUE: PA and lateral views of the chest. COMPARISON: 07/12/2022 FINDINGS: Chronic interstitial changes again noted in both lung [place]orga with stable blunting of left costophrenic angle, likely chronic, perhaps postsurgical. No interval change since the previous study. Sternal cerclage wires and vascular clips are present from a prior sternotomy and coronary artery bypass graft procedure (CABG). Normal mediastinum and bryn. Normal visualized pulmonary arteries. Normal visualized aortic arch and descending thoracic aorta. Normal visualized thoracic spine. Normal visualized ribs, clavicles, and shoulders. There is no demonstrated abnormality of the visualized soft tissue structures of the upper abdomen. RAD/Chest PA and Lateral IMPRESSION: Chronic interstitial changes in both lung [place]orga without a superimposed acute pulmonary process. Likely postsurgical changes to the left hemithorax No interval change Electronically Signed: Stone Collado MD at 11:21 EST ,
[2022-08-30 11:08] LABS: Hematocrit 39.8 % (40-54); Hemoglobin 12.9 g/dL (13.0-16.5)
[2022-08-30 11:43] LABS: Anion Gap 6 (5-15); BUN 14 mg/dL (7-18); BUN/Creat Ratio 14.3 RATIO (10-20); Calcium,Total 9.2 mg/dL (8.5-10.1); Chloride 105 mmol/L (98-107); Creatinine, Serum 0.98 mg/dL (0.70-1.30); EST Glomerular Filtration Rate 81 mL/min (>60); Est Glom Filt Rate - Afr Amer 98 mL/min (>60); Glucose 115 mg/dL (74-106); Potassium 4.2 mmol/L (3.5-5.1); Sodium Level 141 mmol/L (136-145)
== END | disposition home or self-care (01) ==
LOC: RAD 10:47
PROVIDERS: PCP Family Medicine; Visit Provider Physician Assistant Medical
DX: J90 Pleural effusion, not elsewhere classified (principal); D64.9 Anemia, unspecified
CPT/HCPCS: 36415; 71046; 80048; 85014; 85018

== ENCOUNTER → 2023-04-27 | Outpatient (CLI) | payer OTHER, SELFPAY ==
--- NOTE | 2023-04-27 13:52 | CDU_ITS ---
Reason For Study: Carotid Stenosis Rt. Velocities/BP Lt. Velocities/BP Prox CCA 75/27 cm/sec. Prox CCA 79/20 cm/sec. Mid CCA 55/22 cm/sec. Mid CCA 70/23 cm/sec. Dist CCA 42/22 cm/sec. Dist CCA 38/12 cm/sec. Prox ICA 40/20 cm/sec. Prox ICA 37/16 cm/sec. Mid ICA 122/61 cm/sec. Mid ICA 56/23 cm/sec. Dist ICA 81/33 cm/sec. Dist ICA 42/22 cm/sec. Rt. ICA/CCA = 2.2. Lt. ICA/CCA = 0.8. Prox ECA 83/18 cm/sec. Prox ECA 129/9 cm/sec. Rt. Vert. 31/13 cm/sec. Lt. Vert. 55/27 cm/sec. Right Extracranial There is heterogeneous, irregular atherosclerotic plaque noted in the right common carotid artery. There is heterogeneous, irregular atherosclerotic plaque noted in the right internal carotid artery. There is intimal thickening but no significant atherosclerotic plaque noted in the right external carotid artery. Antegrade flow is noted in the right vertebral artery. Left Extracranial There is heterogeneous, smooth atherosclerotic plaque noted in the left common carotid artery. There is intimal thickening but no significant atherosclerotic plaque noted in the left internal carotid artery. There is intimal thickening but no significant atherosclerotic plaque noted in the left external carotid artery. Antegrade flow is noted in the left vertebral artery. Procedure Carotid Duplex 20430. This is a Carotid Duplex examination using B-mode, color flow and specral Doppler. Exam performed in department. VL/Carotid Duplex Ultrasound Interpretation Summary Mild (<50%) stenosis right extracranial internal carotid. Mild (<50%) stenosis left extracranial internal carotid. Flow within the vertebral arteries is antegrade bilaterally. Ordering Physician: Kevin Sandhu Referring Physician: Gomez Quintanilla Performed By: Aby Downing, RDCS, RVT
== END | disposition home or self-care (01) ==
LOC: CVS 13:49
PROVIDERS: PCP Family Medicine; Referring Provider Surgery Vascular Surgery; Visit Provider Surgery Vascular Surgery
DX: I65.23 Occlusion and stenosis of bilateral carotid arteries (principal); I10 Essential (primary) hypertension
CPT/HCPCS: 93880

== ENCOUNTER → 2023-09-18 | Outpatient (CLI) | payer OTHER, SELFPAY ==
--- NOTE | 2023-09-18 06:42 | CT_ITS ---
CT BILATERAL LOWER EXTREMITY WITH 3-D IMAGING CLINICAL INDICATION: Unilateral primary osteoarthritis, right hip, surgical planning TECHNIQUE: Axial CT images of the bilateral lower extremities (including pelvis, bilateral hips, and bilateral knees) was performed without IV contrast material. Coronal and sagittal reformats were provided. RADIATION DOSAGE (If Supplied By Facility): CTDIvol = ( 14.07 ) mGy, DLP = ( 1003.24 ) mGycm COMPARISON: No relevant prior comparison study available FINDINGS: Bones: There is moderate to severe degenerative arthrosis of the right hip joint with joint space narrowing, tiny marginal osteophyte formation, and small subchondral cyst formation in the superolateral acetabulum. There is mild degenerative arthrosis of the left hip joint with small marginal osteophyte formation and tiny subchondral cyst formation in the superolateral acetabulum. There is degenerative disc disease of the visualized lumbosacral spine. The bilateral knee osseous structures are normal without evidence of fracture or dislocation. No lytic or blastic osseous masses. Soft Tissues: There is a tiny right knee joint effusion. There is a small left knee joint effusion. The deep soft tissue structures are unremarkable. The superficial soft tissues are unremarkable without evidence of edema, hematoma, or foreign body. CT/Extremity Lower without Contra IMPRESSION: Moderate to severe degenerative arthrosis of the right hip joint and mild degenerative arthrosis of the left hip joint. Tiny right knee joint effusion and small left knee joint effusion. Electronically Signed: Cory Shukla MD at 13:54 EDT Reading Location ID and State: [facility] / [place] , Service support ,
== END | disposition home or self-care (01) ==
PROVIDERS: PCP Family Medicine; Referring Provider Student in an Organized Health Care Education/Training Program; Visit Provider Student in an Organized Health Care Education/Training Program
DX: M16.11 Unilateral primary osteoarthritis, right hip (principal)
CPT/HCPCS: 73700

== ENCOUNTER 2023-10-11 05:25 | Day surgery (SDC) | payer OTHER, SELFPAY ==
--- NOTE | 2023-09-18 06:46 | EKG12_ITS ---
Test Reason : PRE OP Blood Pressure : / mmHG Vent. Rate : 084 BPM Atrial Rate : 084 BPM P-R Int : 174 ms QRS Dur : 076 ms QT Int : 360 ms P-R-T Axes : 067 110 050 degrees QTc Int : 425 ms Normal sinus rhythm Low voltage QRS Borderline ECG No previous ECGs available Confirmed by ANUSHA SANTOS, DECLAN ([id number]), film or videotape editor ANTELMO CHAVEZ ([id number]) on 09/20/2023 9:15:33 AM Referred By: Ryan Guerrero Confirmed By:DECLAN TAVARES MD
[2023-09-18 07:46] LABS: Absolute Neutrophil Count 4.6 X10^3/uL (2.0-7.7); Basophil# 0.06 X10^3/uL; Basophil% 0.8 % (0-1); Eosinophil# 0.15 X10^3/uL; Hematocrit 43.7 % (40-54); Hemoglobin 14.5 g/dL (13.0-16.5); Lymphocyte % 23.8 % (19-41); Mean Corp Hgb Conc 33.2 g/dL (32-36); Mean Corpuscular Hgb 32.7 pg (27.0-32.0); Mean Corpuscular Volume 98.6 fL (80-94); Mean Platelet Vol. 10.2 fl (6.2-12.0); Monocyte# 0.91 X10^3/uL; NRBC Flagged by Analyzer 0 % (0-5); Neutrophil # 4.57 X10^3/uL (2.7-7.7); Neutrophil % 60.5 % (47-70); Platelet Count 184 K/mm3 (150-450); RBC Distribution Width CV 13.5 % (11.6-14.6); RBC Distribution Width SD 49.1 fl (35.1-43.9); Red Blood Count 4.43 M/mm3 (4.6-6.2); White Blood Count 7.6 K/mm3 (4.4-11.0)
[2023-09-18 08:16] LABS: Magnesium 2.3 mg/dL (1.6-2.6)
[2023-09-18 08:32] LABS: Albumin, Serum 3.5 g/dL (3.2-5.0); Anion Gap 4 (5-15); BUN 14 mg/dL (7-18); BUN/Creat Ratio 16.1 RATIO (10-20); Calcium,Total 9.3 mg/dL (8.5-10.1); Chloride 106 mmol/L (98-107); Creatinine, Serum 0.87 mg/dL (0.70-1.30); EST Glomerular Filtration Rate 92 mL/min (>60); Est Glom Filt Rate - Afr Amer 112 mL/min (>60); Glucose 123 mg/dL (74-106); Potassium 3.6 mmol/L (3.5-5.1); Sodium Level 141 mmol/L (136-145)
[2023-10-11] VITALS (11 sets, daily range): BP systolic 91–138; BP diastolic 49–84; PULSE 75–87; RESP 14–18; TEMP 36.1–36.7; O2SAT 94–100; BMI 38.2
--- NOTE | 2023-10-11 | HIP_PTH ---
PATIENT: BOSSMAN MCLAUGHLIN [place] [facility] [id number] AGE/SX: 68/M ROOM: RE10/11/[address]: Dr. Ryan Guerrero DO : 1955 BED: DIS: 10/11/2023 SPEC #: [id number] RECD: 10/11/23 13:30 STATUS: CASSANDRA REEzequiel #: [id number] CARMEN: 10/11/23 00:[address]: Ryan Guerrero DEPT: SURGICAL PATHOLOGY RECD BY: Abran Belle ENTERED: 10/11/23 13:30 SP TYPE: TOTAL HIP OTHR DR: Dr. Bossman Quintanilla MD Tissues: Hip, NOS Procedures: Decalcification bone/plaque Surgery Specimen Level IV HEADER OPERATION: ERAS, total hip replacement robotic arm assist PRE-OP DIAGNOSIS: Right hip pain TISSUE SUBMITTED: Femoral head MICROSCOPIC DIAGNOSIS Right hip bone and soft tissue, total hip replacement/resection: Femoral head with degenerative osteoarthritic changes. : 10/17/23 MICROSCOPIC DESCRIPTION Slides are reviewed. GROSS DESCRIPTION Received is one container designated bone and soft tissue, right femoral head. The specimen consists of a goodwin femoral head with portion of femoral neck. The femoral head measures 5.0 x 5.0 x 4.0 cm and the portion of femoral neck measures up to 1.0cm in length. Also present in the container is a detached portion of femoral neck measuring 3.5 x 2.5 x 0.7cm. The articular surface displays prominent osteophyte formation, and bone erosion. Also present in the specimen container are multiple irregular fragments of bone reamings and pink-yellow soft tissue measuring in aggregate 8.0 x 7.0 x 3.0 cm. Patent Clerk sections are submitted in two cassettes as follows: 1 - bone reaming, 2 - femoral head after decalcification.CHAZ/ 10/11/23 TC:5 CPT: 73087, [id number]
[2023-10-11] MEDS: Celecoxib 200 MG Capsule 400 MG PO (06:12)
[2023-10-11] MEDS: Acetaminophen 500 MG Tablet 1000 MG PO ×2 (06:12→14:26)
[2023-10-11] MEDS: Gabapentin 600 MG Tablet PO (06:12)
[2023-10-11] MEDS: Lactated Ringers 1,000 ML 15 ML IV (06:20)
[2023-10-11] MEDS: Magnesium 1 GM over 15 mins IV (06:21)
[2023-10-11] MEDS: Lactated Ringers 1,000 ML 999 ML IV ×2 (06:21→10:25)
[2023-10-11 06:44] LABS: Bedside Glucose 121 mg/dL (74-106)
[2023-10-11] MEDS: Cefazolin 2 GM in 0.9% Normal Saline (100mL Bag) 100 ML IV (07:44)
[2023-10-11] MEDS: dexAMETHasone 10 MG/ML Vial IV (08:00)
[2023-10-11] MEDS: TXA 1000mg in NS100 100ml (IVPB at Incision) 660 MG IV (08:00)
[2023-10-11] MEDS: JPS (Morphine 10mg/ml) OPERA.SITE (10:01)
[2023-10-11] MEDS: TXA 1000mg in NS100 100ml (IVPB at Closure) 660 MG IV (10:06)
--- NOTE | 2023-10-11 11:40 | RAD_ITS ---
STUDY: X-RAY - PELVIS AND RIGHT HIP REASON FOR EXAM: Male, 68 years old. Post op -- in PACU. TECHNIQUE: 2 views of the pelvis and right hip. COMPARISON: Pelvis CT dated 09/18/2023. FINDINGS: There is a non-specific bowel gas pattern. Normal visualized soft tissue structures. Normal bilateral iliac wings, sacroiliac joints and visualized sacrum. Normal bilateral superior and inferior pubic rami. Normal pubic symphysis. Normal bilateral ischial tuberosities. There is a new right hip arthroplasty in place, with no periprosthetic fracture. RAD/Hip Min 2 Views (Portable) IMPRESSION: New right hip arthroplasty in place, with no periprosthetic fracture. Electronically Signed: Cory Shukla MD at 12:04 EDT ,
--- NOTE | 2023-10-11 11:47 | OP.PCM_ITS ---
Report of Operation Date of Procedure: 10/11/23
--- NOTE | 2023-10-11 11:47 | PCM.OPRPT ---
Report of Operation Date of Procedure: 10/11/23 Description of Surgical Findings:: Preoperative diagnosis: Right hip primary osteoarthritis Postoperative diagnosis: Right hip primary osteoarthritis Procedure: Robotic assisted right total hip arthroplasty Surgeon: Ryan Guerrero DO Client Solutions Manager: Blanca Sanchez PA-C Anesthesia: Spinal with sedation Cuffing Machine Operator: Jewel Collazo CRNA Complications: None apparent Drains: None Estimated blood loss: 300 cc Urinary output: none recorded IV fluids: 1800 cc crystalloid Specimens: Femoral head Surgical implants: [place] Accolade two 127 degree neck angle hip stem size #6, Biolox delta ceramic V 40 femoral head 36 mm outer diameter + 2.5 mm neck length, [place] Trident X3 10 degree polyethylene insert, Trident 2 TriTanium cluster hole acetabular shell 52 mm diameter Indications: This is an 68-year-old male seen in the outpatient setting for right hip pain. X-rays revealed severe right hip osteoarthritis. A corticosteroid intra-articular injection was attempted 3 months ago, Patient noted short-term relief, but pain quickly returned. He failed oral vnvw-lde-bhyrsfy analgesics including NSAIDs and Tylenol, activity modification. I recommended surgical intervention the form of right total hip arthroplasty. I reviewed the procedure with the patient, its risk, benefits, alternatives. Risks included but were not limited to bleeding, infection, loss of life or limb, risk of anesthesia, neurovascular injury, persistent pain, instability, need for additional surgery, failure of orthopedic hardware, loosening, osteolysis, need for assistive devices long-term, leg length discrepancy. Patient expressed understanding wish to proceed with surgery. Description of procedure: I greeted the patient in same-day surgery holding area the day of surgery. He was identified by name, medical record number, and date of . All questions were answered to patient satisfaction. The operative extremity was marked with a surgical marker. Informed consent was confirmed with the patient. Patient underwent spinal anesthetic in the PACU prior to the procedure. At time of his procedure, patient brought the operative suite and positioned supine initially on a standard operating table. Gentle MAC anesthesia was administered. Patient was then positioned in a lateral decubitus position with the right side up. An axillary roll was placed under the patient's left axilla. The left fibular head was free. We then prepped and draped the right lower extremity in normal, sterile orthopedic fashion. Prior to the procedure, the Matthew plan was reviewed and appeared appropriate based on the patient's CT scan and anatomy. We performed a timeout with all parties in attendance in agreement with the side, site, and operation to be performed. No concerns were voiced and would like to proceed. 1 g TXA IV as well as 2 g Ancef was administered prior to the incision by anesthesia staff. 1 g TXA IV was administered at time of closure additionally. I first elected to place our pelvic array with a curvilinear incision over the iliac crest just posterior to the ASIS. I bluntly dissected down the level of the periosteum. I then drilled 3 intracortical pins with excellent cortical purchase. Pelvic array was then assembled and positioned appropriately. I then turned my attention to the hip. A standard posterior lateral incision was made curvilinear over the posterior lateral hip, centered on the tip of the greater trochanter. Full-thickness skin incision was made, approximately 12 cm in length. I sharply dissected down the level of the fascia echo. Fascia echo was then incised in line with the incision. I bluntly dissected through the raphae of the gluteus mary. Femoral checkpoint was placed at this point. We then registered her femoral anatomy prior to dislocating the hip. I then internally rotated the hip. Limited gluteal bursectomy was performed to identify the short external rotators. A Cobra retractor was placed in his gluteus medius. Short external rotators were taken down with Bovie cautery and tagged for later repair with #2 Ethibond suture. This identified the underlying capsule. A hockey-stick shaped capsulotomy was made over the femoral neck carried posteriorly to the acetabular labrum. Labrum was released and the hip was dislocated. I then marked a standard femoral neck cut 1 fingerbreadth above the lesser trochanter. Sagittal saw was used to carefully cut the femoral neck. Femoral head was removed and examined and appeared benign. It was sent to pathology per hospital policy. I then turned my attention to the acetabulum. Cobra retractors were placed anterior and posteriorly. Self-retaining retractor was placed superiorly. Acetabular labrum was excised with a long handled knife. Acetabular pulmonary was excised with Bovie cautery. Hemostasis was excellent at this point. I then registered the acetabulum with the Vision Source robot successfully. I then brought in the Vision Source robot with the acetabular reaming arm to a size 52. This was reamed and the planned position to the planned depth. Reamer was then removed. There was excellent bleeding bone at the base and excellent remaining anterior posterior penn of the acetabulum. 52 mm acetabular component was selected for and attached to the industrial safety and health specialist arm of the robot. I placed the acetabular component near planned position before attaching to the robot. The robot then held the cuff in position while I impacted it to an appropriate depth. The acetabular cup was then removed from the robotic arm. It had excellent rim fit. I then selected a 10 degree posterior lipped liner and impacted this per nutritional assistant recommendations. I then turned my attention to the femur. Box chisel was then utilized to gain access to the femoral canal. Canal finder was placed. Sequential broaches were used and press-fit manner. A final size 6 achieved excellent vertical and rotational stability. We then trialed with a 127 degree hip stem as templated. A 0 and +2.5 mm neck length were trialed. The + 2.5 mm neck achieved greater stability as well as better reproduced leg lengths. Trials were then removed. A 3-minute dilute Betadine soak was performed and then the wound was copiously irrigated with normal saline solution with pulse lavage. A size 6 stem was then impacted with excellent fixation. Final head was then impacted over clean, dry Fitch taper neck. Final reduction was performed. A posterior capsular repair was performed with #2 Ethibond suture and bone tunnels, as well as the short external rotator repair. Femoral checkpoint was removed. Pelvic array pins were removed. IT band was closed watertight with #1 strata fix suture. Deeper fascial layers were closed with 0 Vicryl suture in interrupted fashion. Subcutaneous layers were reapproximated with 2-0 Vicryl suture and skin reapproximated with running subcuticular 3-0 strata fix and skin glue. Pelvic array incision was closed with buried 2-0 Vicryl suture and skin glue.. A silver dressing was applied. Patient tolerated procedure well without complication. He was positioned back in the supine position on his hospital bed. He was transferred to PACU in stable condition. A pillow was placed between the patient's leg to be present while he is in bed. Need for skilled assistant district attorney: Blanca Sanchez PA-C was critical to the outcome of the case. During the course of the procedure the physician assistant district attorney played a vital role. Her intimate knowledge of my steps in the procedure aided in safe and expedient completion of the procedure. The PA played a vital role in positioning particularly in obtaining the appropriate positioning. The PA was also vital in the retraction of soft tissues during the exposure and projecting vital structures. The PA was also vital and protecting soft tissues during times of bony cuts. She also played a vital role in closure with my direct supervision. The PA was also important during reduction and dislocation of the joint and trials intraoperatively. Post Operative Plan: Plan for patient to be discharged same day as an outpatient total hip. Outpatient physical therapy to start 10/15/2023 which she has already been scheduled. Weightbearing: Weightbearing as tolerated right lower extremity, posterior hip precautions x 6 weeks. Pillows between legs while in bed Antibiotics: Ancef 1 g every 8 hours x 3 doses DVT Prophylaxis: Aspirin 81 mg twice daily to start tomorrow Ramos: None Dressing: Maintain silver dressing x 5 days X-Rays: PACU x-rays were reviewed demonstrated well-positioned right total hip arthroplasty implant. Follow-up 2-week x-rays in the office. Follow-up: 2 weeks in my office as scheduled
[2023-10-11] MEDS: Cefazolin 1 GM/50 ML BAG IV (13:11)
== END 2023-10-11 15:09 | disposition home or self-care (01) ==
LOC: SDC 05:26 → AC 05:26
PROVIDERS: Anesthesiology; PCP Family Medicine; Referring Provider Student in an Organized Health Care Education/Training Program; Visit Provider Student in an Organized Health Care Education/Training Program
PROC: 8E0Y0CZ Robotic Assisted Procedure of Lower Extremity, Open Approach (ICD-10-PCS; CPT 27130; principal; 2023-10-11 07:00)
DX: M16.11 Unilateral primary osteoarthritis, right hip (principal); J44.9 Chronic obstructive pulmonary disease, unspecified; I48.91 Unspecified atrial fibrillation; I10 Essential (primary) hypertension; E78.00 Pure hypercholesterolemia, unspecified; I25.2 Old myocardial infarction; K21.9 Gastro-esophageal reflux disease without esophagitis; I25.10 Atherosclerotic heart disease of native coronary artery without angina pectoris; E66.9 Obesity, unspecified; Z95.1 Presence of aortocoronary bypass graft; Z79.899 Other long term (current) drug therapy; Z79.82 Long term (current) use of aspirin; Z87.891 Personal history of nicotine dependence
CPT/HCPCS: 27130; S2900; 01214; 36415; 73502; 80048; 82040; 82962; 83735; 85025; 87081; 88305; 88311; 93005; 97162; C1776; J7120; J2405; J3475

== ENCOUNTER → 2024-04-03 | Outpatient (CLI) | payer OTHER, SELFPAY ==
--- NOTE | 2024-04-03 11:02 | RAD_ITS ---
STUDY: X-RAY CHEST REASON FOR EXAM: Male, 69 years old. CHANDLER TECHNIQUE: PA and lateral COMPARISON: August 30, 2022 FINDINGS: There are prominent interstitial markings in both lower lobes more severe on the left which appear chronic however cannot definitively exclude coexisting inflammatory disease. There is no demonstrated pleural abnormality. Normal size heart. Normal mediastinum and bryn. Normal visualized pulmonary arteries. Normal visualized aortic arch and descending thoracic aorta. Postop change status post median sternotomy and CABG Dorsal spine demonstrates degenerative change. Normal visualized ribs, clavicles, and shoulders. There is no demonstrated abnormality of the visualized soft tissue structures of the upper abdomen. RAD/Chest PA and Lateral IMPRESSION: Probable bibasilar chronic interstitial changes more pronounced on the left. Electronically Signed: Juan Rogers MD at 17:20 EDT ,
[2024-04-03 11:47] LABS: Absolute Lymphocyte Count 1.42 X10^3/uL (0.83-4.51); Basophil# 0.04 X10^3/uL; Basophil% 0.5 % (0-1); Eosinophil# 0.14 X10^3/uL; Eosinophils% 1.9 % (0-5); Hematocrit 40.1 % (40-54); Hemoglobin 13.1 g/dL (13.0-16.5); Lymphocyte # 1.42 X10^3/ul (0.83-4.51); Lymphocyte % 19.1 % (19-41); Mean Corp Hgb Conc 32.7 g/dL (32-36); Mean Corpuscular Hgb 32.8 pg (27.0-32.0); Mean Corpuscular Volume 100.5 fL (80-94); Mean Platelet Vol. 10.5 fl (6.2-12.0); Monocyte# 0.75 X10^3/uL; Monocyte% 10.1 % (0-10); NRBC Flagged by Analyzer 0 % (0-5); Neutrophil # 5.03 X10^3/uL (2.7-7.7); Neutrophil % 67.9 % (47-70); Platelet Count 183 K/mm3 (150-450); RBC Distribution Width CV 15.8 % (11.6-14.6); RBC Distribution Width SD 58.4 fl (35.1-43.9); Red Blood Count 3.99 M/mm3 (4.6-6.2); White Blood Count 7.4 K/mm3 (4.4-11.0)
[2024-04-03 12:46] LABS: Anion Gap 4 (5-15); BUN 22 mg/dL (7-18); BUN/Creat Ratio 23.7 RATIO (10-20); Calcium,Total 9.3 mg/dL (8.5-10.1); Chloride 109 mmol/L (98-107); Creatinine, Serum 0.93 mg/dL (0.70-1.30); EST Glomerular Filtration Rate 86 mL/min (>60); Est Glom Filt Rate - Afr Amer 104 mL/min (>60); Glucose 120 mg/dL (74-106); Potassium 3.8 mmol/L (3.5-5.1); Sodium Level 140 mmol/L (136-145)
[2024-04-03 12:54] LABS: BNP,B-Type NATRIURETIC PEPTIDE 284.1 pg/mL (0-100)
== END | disposition home or self-care (01) ==
LOC: RAD 11:00
PROVIDERS: PCP Family Medicine; Referring Provider Nurse Practitioner Gerontology; Visit Provider Nurse Practitioner Gerontology
DX: R06.09 Other forms of dyspnea (principal)
CPT/HCPCS: 36415; 71046; 80048; 83880; 85025

== ENCOUNTER → 2024-04-16 | Outpatient (CLI) | payer OTHER, SELFPAY ==
--- NOTE | 2024-04-16 06:51 | ECHOCS_ITS ---
Reason For Study: Dyspnea/SOB Procedure This was a 2D Doppler, Color Flow transthoracic echocardiogram. The study was technically difficult. Contrast injection was performed. Exam performed in department. Left Ventricle Normal LV size. Left ventricular systolic function is normal. The left ventricular ejection fraction is 60 %. No regional wall motion abnormalities noted. Right Ventricle Normal RV size. Normal systolic function. Atria The left atrium is mildly enlarged. Normal right atrium. Mitral Valve Normal mitral valve. Tricuspid Valve Normal tricuspid valve. Aortic Valve Normal aortic valve. Pulmonic Valve Normal pulmonic valve. Great Vessels Normal aortic root. The pulmonary artery is normal size. Normal inferior vena cava. Pericardium/Pleural Epicardial fat. Medication 22 gauge I.V. with prn adaptor inserted into right arm. Diluted definity 2ml given slow IV push to enhance endocardial definition. MMode/2D Measurements & Calculations LVIDd: 4.2 cm IVSd: 0.65 cm LA dimension: 4.6 cm LVIDs: 3.3 cm LVPWd: 1.0 cm RVDd: 3.3 cm FS: 21.0 % LAV(MOD-bp): 76.5 ml LVAd ap4: 25.2 cm2 SV(MOD-sp4): 38.8 ml LAV(MOD-bp) Indexed: 33.3 ml/m2 LVLd ap4: 6.8 cm LAV(MOD-sp2): 70.4 ml EDV(MOD-sp4): 76.5 ml LAV(MOD-sp4): 75.7 ml EDV(sp4-el): 78.8 ml LVAs ap4: 16.3 cm2 LVLs ap4: 5.7 cm ESV(MOD-sp4): 37.7 ml ESV(sp4-el): 39.4 ml EF(MOD-sp4): 50.7 % EF(sp4-el): 50.0 % SV(sp4-el): 39.4 ml LA A4 area: 23.7 cm2 LA dimension(2D): 4.5 cm RA A4 area: 14.9 cm2 TAPSE: 1.3 cm Time Measurements MV dec time: 0.12 sec Doppler Measurements & Calculations MV E max mihir: 75.8 cm/sec Lat Peak E' Mihir: 12.5 cm/sec Med Peak E' Mihir: 12.0 cm/sec MV A max mihir: 71.6 cm/sec E/E' lat: 6.1 E/E' med: 6.3 MV E/A: 1.1 MV V2 max: 131.6 cm/sec MV P1/2t max mihir: 133.1 cm/sec Ao V2 max: 86.2 cm/sec MV max P.0 mmHg MV P1/2t: 59.7 msec Ao max P.0 mmHg MV V2 mean: 60.4 cm/sec MV dec slope: 653.6 cm/sec2 Ao V2 mean: 58.6 cm/sec MV mean P.9 mmHg MVA(P1/2t): 3.7 cm2 Ao mean P.6 mmHg MV V2 VTI: 28.1 cm Ao V2 VTI: 17.8 cm AV (velocity ratio): 1.1 LV V1 max: 80.7 cm/sec PA V2 max: 73.6 cm/sec LV V1 max P.6 mmHg PA max PG (full): 1.2 mmHg LV V1 mean P.3 mmHg LV V1 mean: 53.9 cm/sec LV V1 VTI: 18.9 cm ECHO/Echo Complete W/ Contrast Interpretation Summary Normal LV size. Left ventricular systolic function is normal. The left ventricular ejection fraction is 60 %. The left atrium is mildly enlarged. Contrast injection was performed. Ordering Physician: Laura Looney Referring Physician: Laura Looney Performed By: Moose Swann RCS
--- NOTE | 2024-04-16 16:54 | STRESSREP_ITS ---
Stress Test Report Exercise myocardial perfusion stress test. 69-year-old male with a history of coronary disease Stress protocol: Resting EKG demonstrates normal sinus rhythm with a rate of 76 bpm resting blood pressure is 122/88 mmHg. The patient exercised according to the regular Raimundo protocol for a total duration of 4 minutes attaining a maximum heart rate of 144 bpm which was 96% of maximum predicted heart rate; the maximum workload was 7 metabolic equivalents. At rest there were no ST or T wave changes noted to suggest ischemia and at peak exercise upsloping ST changes only were noted which did not meet the criteria for ischemia. No clinical angina was noted the test was terminated due to the target heart rate being achieved/fatigue. The peak blood pressure was 146/78 mmHg. Rate-pressure product was 19,800. Myocardial perfusion protocol. 14.9 mCi of technetium 99m sestamibi was injected at rest. The patient exercised according to regular Raimundo protocol for total duration of 4 minutes and at peak exercise 44.5 mCi of technetium 99m sestamibi was injected stress images were obtained stress and rest images were reconstructed in comparing the short axis vertical long and horizontal long axis. Gated images were also obtained. Perfusion SPECT analysis: Review of the stress images demonstrate normal uptake of tracer noted in all a reas of the myocardium. There is mild reduction of perfusion noted in the mid anterior wall. The resting images similarly demonstrate normal uptake of tracer noted in all areas of the myocardium. Mild amount of mid anterior ischemia cannot be completely excluded. Gated SPECT analysis: The gated ejection fraction is 71%. Conclusion: Mildly abnormal exercise myocardial perfusion stress test at a moderate workload with mild mid anterior ischemia Preserved ejection fraction.
== END | disposition home or self-care (01) ==
PROVIDERS: PCP Family Medicine; Referring Provider Nurse Practitioner Gerontology; Visit Provider Nurse Practitioner Gerontology
DX: R06.09 Other forms of dyspnea (principal)
CPT/HCPCS: 78452; 93017; 93306; A9500; Q9957; A4216; C8929

== ENCOUNTER → 2024-10-13 | Outpatient (CLI) | payer OTHER, SELFPAY ==
--- NOTE | 2024-10-13 07:38 | CDU_ITS ---
Reason For Study Reason For Study: HX Lt CEA Rt. Velocities/BP Lt. Velocities/BP Prox CCA 58.9/20.4 cm/sec. Prox CCA 75.4/21.5 cm/sec. Mid CCA 51.2/22.6 cm/sec. Mid CCA 55.9/17.5 cm/sec. Dist CCA 52.3/22.6 cm/sec. Dist CCA 43.1/16.1 cm/sec. Prox ICA 121.1/60.8 cm/sec. Prox ICA 30.3/13.2 cm/sec. Mid ICA 112.0/57.9 cm/sec. Mid ICA 40.5/19.7 cm/sec. Dist ICA 83.4/36.2 cm/sec. Dist ICA 42.4/21.5 cm/sec. Rt. ICA/CCA = 2.4. Lt. ICA/CCA = 0.8. Prox ECA 66.8/13.9 cm/sec. Prox ECA 101.6/13.9 cm/sec. Rt. Vert. 29.5/11.9 cm/sec. Lt. Vert. 60.0/33.6 cm/sec. Right Extracranial There is homogeneous, smooth atherosclerotic plaque noted in the right common carotid artery. There is heterogeneous, irregular atherosclerotic plaque noted in the right internal carotid artery. There is intimal thickening but no significant atherosclerotic plaque noted in the right external carotid artery. Antegrade flow is noted in the right vertebral artery. Left Extracranial There is homogeneous, smooth atherosclerotic plaque noted in the left common carotid artery. There is homogeneous, smooth atherosclerotic plaque noted in the left internal carotid artery. HX CEA. There is intimal thickening but no significant atherosclerotic plaque noted in the left external carotid artery. Antegrade flow is noted in the left vertebral artery. Procedure Carotid Duplex [id number]. This is a Carotid Duplex examination using B-mode, color flow and specral Doppler. The exam was diagnostic. Exam performed in department. VL/Carotid Duplex Ultrasound Interpretation Summary Mild (<50%) stenosis right extracranial internal carotid. Mild (<50%) stenosis left extracranial internal carotid. Patent and antegrade vertebrals bilaterally. Ordering Physician: Kevin Sandhu Referring Physician: MD Gomez Quintanilla Performed By: Sarabjit Gonzalez RVT
== END | disposition home or self-care (01) ==
LOC: CVS 07:37
PROVIDERS: PCP Family Medicine; Referring Provider Surgery Vascular Surgery; Visit Provider Surgery Vascular Surgery
DX: I65.22 Occlusion and stenosis of left carotid artery (principal); I10 Essential (primary) hypertension
CPT/HCPCS: 93880

== ENCOUNTER → 2025-05-08 | Outpatient (CLI) | payer OTHER, SELFPAY ==
[2025-05-08 12:23] LABS: AST(SGOT) 27 U/L (<=37); Alanine Aminotransfer ALT/SGPT 28 U/L (<=46); Albumin, Serum 4.2 g/dL (3.4-4.8); Alkaline Phosphatase 91 U/L (40-129); Bilirubin, Direct 0.33 mg/dL (0.00-0.30); Cholesterol 118 mg/dL (<=200); Globulin 2.9 g/dL (2.2-4.2); Low Density Lipoprotein Calc. 61 mg/dL; Triglycerides 40 mg/dL; Very Low Density Lipoprotein 8 mg/dL (5-40); cholesterol:hdl ratio screen 2.53
== END | disposition home or self-care (01) ==
LOC: LAB 11:19
PROVIDERS: PCP Family Medicine; Referring Provider Student in an Organized Health Care Education/Training Program; Visit Provider Student in an Organized Health Care Education/Training Program
DX: I25.10 Atherosclerotic heart disease of native coronary artery without angina pectoris (principal); Z95.1 Presence of aortocoronary bypass graft
CPT/HCPCS: 36415; 80061; 80076